=== PATIENT | female | born 1965 | race Caucasian/White ===

== ENCOUNTER → 2018-01-09 | Day surgery (SDC) | payer OTHER, BC ==
--- NOTE | 2018-01-12 12:06 | OP ---
DATE OF OPERATION: 01/09/2018 PREOPERATIVE DIAGNOSIS: Left breast mass 2 o'clock 7 cm from the nipple and left breast mass at 10 o'clock 3 cm from the nipple. POSTOPERATIVE DIAGNOSIS: Left breast mass 2 o'clock 7 cm from the nipple and left breast mass at 10 o'clock 3 cm from the nipple. PROCEDURE: Left ultrasound-guided core biopsies. ANESTHESIA: Local. ATTENDING SURGEON: Alison Pickard MD ESTIMATED BLOOD LOSS: Minimal. COMPLICATIONS: None. DESCRIPTION OF PROCEDURE: The patient was made aware of the risks and benefits of the procedure and consented. She was placed in a supine position. The left breast mass at 2 o'clock 7 cm from the nipple was approached first. Under sterile conditions with 1% lidocaine for local anesthesia, a small marina was made in the skin. Using a 10-gauge suction biopsy device via lateral approach under ultrasound guidance, multiple cores were obtained and submitted to Pathology. Likewise, under ultrasound guidance, a U-shaped clip was placed into the biopsy region. Steri-Strips and a sterile bandage were then applied. The left breast mass at 10 o'clock was then approached. Under sterile conditions with 1% lidocaine for local anesthesia, a small marina was made in the skin. Using a 10-gauge suction biopsy device via lateral approach under ultrasound guidance, multiple cores were obtained and submitted to Pathology. Likewise, under ultrasound guidance, a bowtie clip was placed into the biopsy region. Well tolerated by patient. Steri-Strips and a sterile bandage was applied. Postprocedure mammography was performed. We will contact her with results. ALISON PICKARD M.D. [id number]
--- NOTE | 2018-01-12 15:53 | PATH ---
Surgical Pathology Report Patient Name: EWA MORRIS [facility]. Rec. #: [id number] /Age/Gender: 1965 (Age: 52) / F Account: [id number] Location: [facility] RADIOLOGY U Taken: 01/09/2018 Received: 01/09/2018 Reported: 01/12/2018 Physicians: Alison Pickard M.D. Specimen(s) Received A: LEFT BREAST 2:00, 7 CM FN CORE BIOPSY B: LEFT BREAST 10:00, 3 CM FN CORE BIOPSY Clinical History Nonpalpable lesion Ultrasound findings: Highly suspicious/malignant Final Diagnosis A. BREAST, LEFT, 2:00, 7 CM FN (SITE #1), CORE BIOPSY: INVASIVE DUCTAL CARCINOMA, MODERATELY DIFFERENTIATED, MEASURING AT LEAST 3 MM IN GREATEST DIMENSION IN THIS MATERIAL. FOCAL DUCTAL CARCINOMA IN SITU (DCIS), SOLID TYPE, INTERMEDIATE NUCLEAR GRADE. Results of ER and MS studies performed at [facility] are as follows: ER (clone [id number] mouse monoclonal antibody by [employer]): ~60 % nuclear staining with moderate to strong intensity (Positive). MS (clone16 mouse monoclonal antibody by [employer]): 0 % nuclear staining (Negative). Results of Her2 & Ki67 studies will be reported separately in an addendum. B. BREAST, LEFT, 10:00, 3 CM FN (SITE #2), CORE BIOPSY: FIBROFATTY TISSUE SHOWING FAT NECROSIS. NEGATIVE FOR MALIGNANCY. Note: Cytokeratin (AE1/3) immunostain was using the evaluation of specimen B. Positive and negative controls (internal if applicable) show appropriate results. Formalin fixation and cold ischemic times are within current ASCO/CAP recommendations for ER, MS and Her2 testing. Electronically Signed Brandy De La Garza M.D. Addendum Reported: 01/13/2018 Addendum Diagnosis Results of Her2 (IHC) & Ki-67 studies performed on block A at [place], [place] ([id number]) are as follows: Her2 IHC (EP3 from [employer], formerly known as [id number], using Do Polymer Refine detection kit): 3+ (Positive). Ki-67: ~25% (Intermediate proliferative index). Positive and negative controls (internal if applicable) show appropriate results. Brandy De La Garza M.D. Gross Description A. Received in formalin labeled "left breast biopsy 2:00, 7 cmfn," is a 1.8 x 1.7 x 0.3 cm aggregate of multiple elizabeth-yellow, irregular to cylindrical portions of fibroadipose tissue. The formalin is filtered and the specimen is entirely submitted in one cassette. B. Received in formalin labeled "left breast biopsy 10:00, 3 cmfn," are 3 elizabeth-yellow, cylindrical portions of fibroadipose tissue averaging 1.4 cm in length and 0.2 cm in diameter. The specimens are submitted in toto in one cassette. Time to formalin fixation: < 1 minute Total formalin fixation time: Approximately 7 hours. 01/09/201801/09/2018
== END | disposition home or self-care (01) ==
LOC: FRADUS-SUR 10:21
PROVIDERS: ATTEND Surgery Surgical Oncology
PROC: 0HBU3ZX Excision of Left Breast, Percutaneous Approach, Diagnostic (ICD-10-PCS; principal; 2018-01-09)
DX: C50.412 Malignant neoplasm of upper-outer quadrant of left female breast (principal); D05.12 Intraductal carcinoma in situ of left breast; N64.1 Fat necrosis of breast; N63.21 Unspecified lump in the left breast, upper outer quadrant; N63.22 Unspecified lump in the left breast, upper inner quadrant
CPT/HCPCS: 19083; 19084; 76942-TC; 77065-TC; 87899; 88305-TC; 88342-TC; A4648

== ENCOUNTER 2018-03-24 06:55 | Day surgery (SDC) | payer BC, OTHER ==
--- NOTE | 2018-03-16 10:32 | HP ---
Admitting History and Physical - Primary Care Physician PCP: Alison Pickard - Admission Chief Complaint: left breast cancer History of Present Illness: Patient is a 52 yo female noted to have left upper outer quad calcifications on screening mammo (01/2018). The US was c/w a left 2 oclock .9 cm hypoechoic mass which appears to be associated with the microcalcifications seen on mammo. There is also a left 10 oclock mass noted on US for which a bx was recommended. US core bx of the left 2 oclock lesion was c/w invasive ductal carcinoma and DCIS. ER positive, PA negative Her 2 positive. Left 10 oclock lesion was c/w fat necrosis on bx. MRI done 01/15/2018 qas c/w known left breast cancer as well as a right .8 cm mass in the lower inner quad. Directed US of this finding was c/w stable mass. 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 Patient has opted to have a left WE with NL, lymphoscintogram, sentinel node biopsy and reconstruction. History Source: Patient - Past Medical History Cardiovascular: Yes: HTN Reproductive: Yes: Other (HGSIL with h/o leep cone bx.) Psych: Yes: Anxiety ENT: Yes: Other (allergies) - Past Surgical History Past Surgical History: Yes: Breast Biopsy (right in 1997 negative left in 2010 fibroadenoma) Additional Past Surgical History: leep cone bx - Smoking History Smoking history: Former smoker Have you smoked in the past 12 months: No - Alcohol/Substance Use Hx Alcohol Use: Yes (social) Home Medications - Allergies Allergies/Adverse Reactions: Allergies Allergy/AdvReac Type Severity Reaction Status Date / Time Penicillins Allergy Verified 01/26/18 11:38 Family Disease History - Family Disease History Family Disease History: CA: Father (pancreatic cancer 78 ), Mother (CRC mets 67 now 88 ) Other Family History: maternal uncle CRC at 70 Review of Systems - Review of Systems Cardiovascular: reports: No Symptoms Respiratory: reports: No Symptoms (stressed) Psychiatric: reports: Other (stressed) Physical Examination Constitutional: Yes: Well Nourished, Calm Breast(s): Yes: Other (breasts are diffusely nodular without suspicious masses or adenopathy noted bilaterally) Problem List - Problems (1) Breast cancer, left Code(s): C50.912 - MALIGNANT NEOPLASM OF UNSPECIFIED SITE OF LEFT FEMALE BREAST Qualifiers: Breast location: upper outer quadrant of breast Estrogen receptor status: positive Patient sex: female Qualified Code(s): C50.412 - Malignant neoplasm of upper-outer quadrant of left female breast; Z17.0 - Estrogen receptor positive status [ER+]; Z17.0 - Estrogen receptor positive status [ER+] Assessment/Plan Plan: left breast WE with NL, snbx, lympho, possible andx, with reconstruction
[2018-03-19 11:22] VITALS: BMI 23.3
[2018-03-24] MEDS ORDERED: ROCURONIUM BROMIDE 50 MG/5 ML VIAL ONE (12:14)
[2018-03-24] MEDS ORDERED: LIDOCAINE HCL/PF 2% SDV 5ML VIAL ONE (12:17)
[2018-03-24] MEDS ORDERED: ONDANSETRON 4 MG/2 ML VIAL ONE ×2 (12:17→16:08)
[2018-03-24] MEDS ORDERED: DEXAMETHASONE SOD PHOSPHATE 4 MG/1 ML VIAL ONE (12:17)
[2018-03-24] MEDS ORDERED: KETOROLAC TROMETHAMINE 30 MG/1 ML VIAL ONE (12:17)
[2018-03-24] MEDS ORDERED: MIDAZOLAM HCL 2 MG/2 ML SINGLE DOSE VIAL ONE (12:18)
[2018-03-24] MEDS ORDERED: PROPOFOL 20 ML ONE (12:18)
[2018-03-24] MEDS ORDERED: ONDANSETRON 4 MG/2 ML VIAL IVPUSH PRN ×2 (12:55→13:49)
[2018-03-24] MEDS ORDERED: oxyCODONE HCL 5 MG TABLET PO PRN ×2 (12:55)
[2018-03-24] MEDS ORDERED: LACTATED RINGERS SOLUTION 1,000 ML IV SCH (13:00)
[2018-03-24] MEDS ORDERED: KETOROLAC TROMETHAMINE 30 MG/1 ML VIAL IVPUSH PRN (13:49)
[2018-03-24] MEDS ORDERED: ceFAZolin SODIUM 1 GM VIAL ONE (14:00)
[2018-03-24] MEDS ORDERED: DEXTROSE 5%-0.45% SALINE 1,000 ML IV SCH (14:00)
[2018-03-24] MEDS ORDERED: SODIUM CHLORIDE 0.9% P/F 10 ML VIAL IJ ONE (14:00)
[2018-03-24] MEDS ORDERED: ePHEDrine SULFATE 50 MG/1 ML AMPULE ONE (14:06)
[2018-03-24] MEDS ORDERED: fentaNYL CITRATE 250 MCG/5 ML VIAL ONE (14:19)
[2018-03-24] MEDS ORDERED: DESFLURANE GAS 240 ML BOTTLE IH ONE (14:25)
[2018-03-24] MEDS ORDERED: NEOSTIGMINE METHYLSULFATE 0.5 MG/ML - 10 ML MDV ONE (15:15)
[2018-03-24] MEDS ORDERED: GLYCOPYRROLATE 0.2 MG/1 ML VIAL ONE (15:16)
--- NOTE | 2018-03-24 16:50 | OP ---
DATE OF OPERATION: 03/24/2018 TITLE OF PROCEDURE: Left breast reconstruction of partial mastectomy defect. PREOPERATIVE DIAGNOSIS: Left-sided breast cancer. POSTOPERATIVE DIAGNOSIS: Left-sided breast cancer. The patient is seen in the holding area. She is counseled on all risks, benefits, and alternatives to the procedure, understands and agreed to proceed. The patient has preoperatively decided to not have a symmetrizing procedure on the contralateral side. This was expressed to the breast surgeon, Dr. Alison Pickard, as well as to her . Sequential compression stockings and EDUAR hose are applied bilaterally. At this point, the patient is brought to the operating room, placed in a supine position. Position is carefully checked by surgical and anesthesia teams. She is positioned, draped and prepped entirely by Dr. Pickard and his team. I am not prepped or scrubbed for this portion. I am only called in after the partial mastectomy is completed. The patient had received a gram of Ancef preoperatively. A timeout had been called. Patient, procedure, side, and sites verified. At this point, I am able to identify the defect in each of the axilla, and the lateral/superolateral tail of the breast. The amount of tissue removed represents a small percentage of the breast volume. Hemostasis meticulously achieved. Reconstruction of the defect is performed by subcutaneous undermining and mobilizing of axillary fat into the lateral tail defect. This is secured with a series of interrupted 3-0 Monocryl suture. Several sutures are used to tack to the lateral border of the pectoralis major muscle in order to fix the position so it would not tether on breast tissue that would otherwise be tethering on the skin. At the completion of this, donor site defect within the axilla is left in order to heal secondarily. This is a parenchymal defect without any skin wound. The skin edges are then trimmed for healthy skin for healing. Closure is performed of the deep breast capsular tissue with a series of interrupted, buried, 3-0 Monocryl suture. The dermis is then closed along the lateral fold of the breast with a series of interrupted, buried, deep dermal, 3-0 Monocryl suture. Closure is then performed with a running subcuticular 3-0 Monocryl suture, followed by a series of interrupted 5-0 nylon suture with several vertical mattress elements in order to perfect the closure. Dressings were applied with Steri-Strips, ABD gauze, surgical bra. Patient is awoken from anesthesia, transferred to Recovery without complication. Trinidad SLADE/[id number]
--- NOTE | 2018-03-24 17:21 | OP ---
DATE OF OPERATION: 03/24/2018 PREOPERATIVE DIAGNOSIS: Left breast cancer. POSTOPERATIVE DIAGNOSIS: Left breast cancer. PROCEDURE: Left mammographically-localized partial mastectomy with sentinel node biopsy. ANESTHESIA: General, intubated. ATTENDING SURGEON: Becki Pickard MD THREAD PULLER: JESSICA Hinds ESTIMATED BLOOD LOSS: Minimal. COMPLICATIONS: None. PROCEDURE: The patient was made aware of the risks and benefits of the procedure and consented. She was placed in supine position after going to the radiology suite, where a needle was placed next to the indexed lesion. After general anesthesia was induced, the patient was intubated. Then 2.0 mL of 1% isosulfan blue were locally infiltrated into peritumoral tissues. The operative site was prepped and draped in the usual sterile fashion. Waiting approximately 10 minutes, with gentle manual compression, a curvilinear incision was made in the left axilla, extending down to just underneath the needle localization. Using electrocautery, tissues were dissected down to the axillary fat. Irrigation of the axilla revealed blue and hot lymph nodes, of which 4 were excised and submitted for permanent sectioning. Investigation of the rest of the axilla revealed no other suspicious lymph nodes and the counts were less than 10% of the original preoperative value. Thick skin flaps were made and the needle was withdrawn through the puncture site and brought out through the wound. Tissues around the wire were then sharply excised and submitted with a short suture superior, long suture lateral. Specimen radiograph confirmed the presence of the indexed lesion and associated microcalcifications. Additionally segments were taken superior, inferior, medial, lateral, deep, and anterior, with clips at the new margin, the deep margin, took the tissue off of the pectoralis muscle. The procedure was then turned over to Dr. Alexis Velásquez for reconstruction. He will dictate his portion separately. BECKI PICKARD M.D. DAYO/[id number]
[2018-03-24] MEDS ORDERED: oxyCODONE HCL 5 MG TABLET ONE (17:57)
[2018-03-24 18:05] VITALS: BP 124/76; PULSE 78; TEMP 98
--- NOTE | 2018-03-27 15:51 | PATH ---
Surgical Pathology Report Patient Name: EWA MORRIS [facility]. Rec. #: [id number] /Age/Gender: 1965 (Age: 52) / F Account: [id number] Location: [facility] AMBULATORY Taken: 03/24/2018 Received: 03/24/2018 Reported: 03/27/2018 Physicians: Alison Pickard M.D. Specimen(s) Received A: LEFT AXILLARY SENTINAL NODE B: LEFT BREAST WIDE EXCISION C: LEFT BREAST ANTERIOR MARGIN D: LEFT BREAST DEEP MARGIN E: LEFT BREAST INFERIOR MARGIN F: LEFT BREAST SUPERIOR MARGIN G: LEFT BREAST LATERAL MARGIN H: LEFT BREAST MEDIAL MARGIN Clinical History Invasive Ca Final Diagnosis A. LYMPH NODE, LEFT AXILLARY SENTINEL, EXCISION: FOUR LYMPH NODES, NEGATIVE FOR METASTATIC CARCINOMA ON H&E STAIN SECTIONS (0/4). B. BREAST, LEFT, WIDE EXCISION: INVASIVE DUCTAL CARCINOMA, POORLY DIFFERENTIATED (TUBULE SCORE: 3/3, NUCLEAR GRADE: 3/3, MITOTIC SCORE: 2/3; TOTAL SCORE: 8/9, KASEY GRADE: 3) WITH PROMINENT ASSOCIATED LYMPHOCYTIC INFILTRATE (> 60% TUMOR INFILTRATING LYMPHOCYTES). INVASIVE CARCINOMA MEASURES 1.0 CM IN GREATEST DIMENSION, MICROSCOPICALLY. DUCTAL CARCINOMA IN SITU (DCIS), SOLID TYPE, HIGH NUCLEAR GRADE WITH EXTENSIVE NECROSIS AND ASSOCIATED CALCIFICATIONS, PRESENT ADMIXED WITH INVASIVE CARCINOMA. SURGICAL MARGINS ARE UNINVOLVED BY INVASIVE CARCINOMA AND DCIS; INVASIVE CARCINOMA IS AT 6 MM FROMTHE CLOSEST (MEDIAL) MARGIN AND DCIS IS AT 1.5 MM FROM THE CLOSEST (MEDIAL) MARGIN. SEE SPECIMENS C-H FOR FINAL MARGINS. NO LYMPHOVASCULAR INVASION IS IDENTIFIED. PRIOR BIOPSY SITE CHANGES ARE PRESENT. PATHOLOGIC STAGE (pTNM): pT1b pN0. SEE ALSO INVASIVE CARCINOMA CASE SUMMARY BELOW. C. BREAST, LEFT, ANTERIOR MARGIN, EXCISION: BENIGN FIBROADIPOSE TISSUE. D. BREAST, LEFT, DEEP MARGIN, EXCISION: BENIGN PREDOMINANTLY FATTY BREAST TISSUE AND SKELETAL MUSCLE. E. BREAST, LEFT, INFERIOR MARGIN, EXCISION: BENIGN PREDOMINANTLY FATTY BREAST TISSUE. F. BREAST, LEFT, SUPERIOR MARGIN, EXCISION: BENIGN BREAST TISSUE. G. BREAST, LEFT, LATERAL MARGIN, EXCISION: FOCAL DCIS, HIGH NUCLEAR GRADE. THE FINAL NEW MARGIN IS UNINVOLVED BY DCIS; DCIS IS AT 2 MM FROM THE CLOSEST NEW MARGIN. H. BREAST, LEFT, MEDIAL MARGIN, EXCISION: FOCAL DCIS, HIGH NUCLEAR GRADE. THE FINAL NEW MARGIN IS UNINVOLVED BY DCIS; DCIS IS AT 1 MM FROM THE CLOSEST NEW MARGIN. Comments Breast Invasive Carcinoma: Surgical Pathology Case Summary (Based on AJCC TNM 8 th edition) Procedure _X_ Excision (less than total mastectomy) Specimen Laterality _X_ Left Tumor Size _X_ Greatest dimension of largest invasive focus >1 mm (millimeters): 10 mm Histologic Type _X_ Invasive carcinoma of no special type (ductal, not otherwise specified) (with prominent lymphocytic infiltrate) Histologic Grade (Kasey Histologic Score) Glandular (Acinar)/Tubular Differentiation _X_ Score 3 (<10% of tumor area forming glandular/tubular structures) Nuclear Pleomorphism _X_ Score 3 Mitotic Rate _X_ Score 2 Overall Grade _X_ Grade 3 (scores of 8 or 9) Tumor Focality _X_ Single focus of invasive carcinoma Ductal Carcinoma In Situ (DCIS) _X_ DCIS is present in specimen _X_ Negative for extensive intraductal component (EIC) Margins Invasive Carcinoma Margins _X_ Uninvolved by invasive carcinoma Distance from closest margin (millimeters): 6 mm from medial margin in wide excision (B). Final medial margin (H) is negative for invasive carcinoma. DCIS Margins _X_ Uninvolved by DCIS Distance from closest margin (millimeters): 1 mm from the final medial margin (H) and 2 mm from the final lateral margin (G) Regional Lymph Nodes Number of Lymph Nodes with Macrometastases (>2 mm): 0 Number of Lymph Nodes with Micrometastases (>0.2 mm to 2 mm and/or >200 cells): 0 Number of Lymph Nodes with Isolated Tumor Cells (=0.2 mm and =200 cells): 0 Number of Lymph Nodes Examined:4 Number of [place] Nodes examined : 4 Treatment Effect _X_ No known presurgical therapy Lymphovascular Invasion _X_ Not identified Pathologic Stage Classification (pTNM, AJCC 8th Edition) Primary Tumor (Invasive Carcinoma) (pT) _X_ pT1b: Tumor >5 mm but =10 mm in greatest dimension Regional Lymph Nodes (pN) Category (pN) _X_ pN0: No regional lymph node metastasis identified or ITCs only Biomarker Studies Results of ER and MD studies performed on prior biopsy (D18) at [facility] are as follows: ER (clone [id number] mouse monoclonal antibody by [employer]): ~ 60 % nuclear staining with moderate to strong intensity (Positive). MD (clone16 mouse monoclonal antibody by [employer]): 0 % nuclear staining (Negative). Results of Her2 (IHC) & Ki-67 studies performed on prior biopsy (D18225 ) at [place], [place] ([id number]) are as follows: Her2 IHC (EP3 from [employer], formerly known as [id number], using Do Polymer Refine detection kit): 3+ (Positive). Ki67: ~25% (Intermediate proliferative index). (See note). Note: Ki67 studies were repeated on the current specimen (block B1) and show up to 30% nuclear staining (Intermediate proliferative index). Positive and negative controls (internal if applicable) show appropriate results. Formalin fixation and cold ischemic times are within current ASCO/CAP recommendations for ER, MD and Her2 testing. Electronically Signed Brandy De La Garza M.D. Gross Description A. Received in formalin labeled "left axillary sentinel node," are 4 elizabeth, irregular lymph nodes ranging from 1.0-1.7 cm in greatest dimension. The specimens are entirely submitted in 4 cassettes as follows: 1-one whole lymph node; 2-4-one whole bisected lymph node each. B. Received in formalin, labeled "left breast wide excision," is a 4.8 x 3.8 x 2.5 cm. elizabeth-yellow, irregular, portion of fibroadipose tissue with a needle localization wire present. There is a short suture marking the superior aspect and a long suture marking the lateral aspect, per the surgeon. There is no skin or nipple present. The specimen is inked as follows: Superior blue; inferior green; anterior and lateral red; medial yellow; deep black. The specimen is serially sectioned from anterior to deep. Sectioning reveals a 0.8 x 0.7 x 0.7 cm elizabeth, firm mass. The mass is at 0.7 cm from the lateral margin and 1.0 cm from the medial & inferior margins. The remaining margins appear widely clear of the mass. [employer] sections are submitted in 6 cassettes as follows: 1-full-face section of mass with inferior, lateral and medial margins; 6-5-jcyvulaelo mass each with inferior, lateral and medial margins; 4-superior margin; 5-anterior margin; 6-deep margin. Time to formalin fixation: 5 minutes Total formalin fixation time: Approximately 27 hours. C. Received in formalin labeled "left breast anterior margin," is a 1.6 x 1.4 x 0.4 cm portion of fibroadipose tissue with a clip marking the new margin, per the surgeon. The new margin is inked blue and the specimen is serially sectioned. The specimen is entirely submitted in 2 cassettes. D. Received in formalin labeled "left breast deep margin," is a 2.1 x 1.8 x 0.8 cm portion of fibroadipose tissue with a clip marking the new margin, per the surgeon. The new margin is inked blue and the specimen is serially sectioned. The specimen is entirely submitted in 3 cassettes. E. Received in formalin labeled "left breast inferior margin," is a 2.7 x 2.2 x 0.6 cm portion of fibroadipose tissue with a clip marking the new margin, per the surgeon. The new margin is inked blue and the specimen is serially sectioned. The specimen is entirely submitted in 3 cassettes. F. Received in formalin labeled "left breast superior margin," is a 1.8 x 1.4 x 0.3 cm portion of fibroadipose tissue with a clip marking the new margin, per the surgeon. The new margin is inked blue and the specimen is serially sectioned. The specimen is entirely submitted in 2 cassettes. G. Received in formalin labeled "left breast lateral margin," is a 2.0 x 1.3 x 0.6 cm portion of fibroadipose tissue with a clip marking the new margin, per the surgeon. The new margin is inked blue and the specimen is serially sectioned. The specimen is entirely submitted in 2 cassettes. H. Received in formalin labeled "left breast medial margin," is a 2.4 x 2.0 x 1.0 cm portion of fibroadipose tissue with a clip marking the new margin, per the surgeon. The new margin is inked blue and the specimen is serially sectioned. The specimen is entirely and sequentially submitted in 3 cassettes. 03/25/201803/25/2018
== END 2018-03-24 18:35 | disposition home or self-care (01) ==
LOC: FASU 06:55
PROVIDERS: ATTEND Surgery Surgical Oncology
PROC: 0HBU0ZZ Excision of Left Breast, Open Approach (ICD-10-PCS; principal; 2018-03-24 14:18)
PROC: 0HRU07Z Replacement of Left Breast with Autologous Tissue Substitute, Open Approach (ICD-10-PCS; 2018-03-24 14:18)
DX: C50.112 Malignant neoplasm of central portion of left female breast (principal); N65.1 Disproportion of reconstructed breast; I10 Essential (primary) hypertension; F41.9 Anxiety disorder, unspecified
CPT/HCPCS: 19281; 78195-TC; 84703; 88307-TC; 94760; A9541